=== PATIENT | male | born 1960 | race Two or more races ===

== ENCOUNTER → 2017-05-09 | Outpatient (CLI) | payer BC ==
--- NOTE | 2017-05-09 10:08 | PCVCIMAG ---
APPROVED REPORT Laterality: Bilateral Patient Location: Out-Patient Indications Stenosis Doppler Spectral Velocity Analysis PSV / EDVPSV / EDV ECA (R) 91 / 12 cm/sECA (L) 82 / 14 cm/s dICA (R) 56 / 22 cm/sdICA (L) 48 / 16 cm/s Myla (R) 52 / 18 cm/smICA (L) 52 / 22 cm/s pICA (R) 64 / 12 cm/spICA (L) 66 / 21 cm/s Bulb (R) 59 / 14 cm/sBulb (L) 64 / 17 cm/s dCCA (R) 79 / 18 cm/sdCCA (L) 87 / 22 cm/s mCCA (R) 72 / 13 cm/smCCA (L) 99 / 27 cm/s Vert (R) 40 / 10 cm/sVert (L) 49 / 17 cm/s ICA/CCA 0.81 ICA/CCA 0.76 Findings The right carotid bulb has moderate calcified plaque. The right proximal internal carotid artery shows <40% stenosis. The right common carotid artery shows no significant stenosis. The right external carotid artery shows no significant stenosis. The left carotid bulb has moderate plaque. The left proximal internal carotid artery shows <40% stenosis. The left common carotid artery shows no significant stenosis. The left external carotid artery shows no significant stenosis. Conclusion 1. Right internal carotid artery stenosis (<40%) 2. Left internal carotid artery stenosis (<40%) 3. Antegrade vertebral flow
== END | disposition home or self-care (01) ==
LOC: PCVCIMAG 07:51
PROVIDERS: ATTEND Internal Medicine Cardiovascular Disease
DX: I65.23 Occlusion and stenosis of bilateral carotid arteries (principal); I25.10 Atherosclerotic heart disease of native coronary artery without angina pectoris; I10 Essential (primary) hypertension; E11.9 Type 2 diabetes mellitus without complications; I25.5 Ischemic cardiomyopathy
CPT/HCPCS: 93880